=== PATIENT | male | born 1985 | race Caucasian/White ===

== ENCOUNTER 2021-09-25 06:59 | Emergency (ER) | payer SELFPAY ==
[2021-09-25 07:05] VITALS: BP 117/77
== END 2021-09-25 08:36 | disposition left against medical advice (07) ==
LOC: ED 06:59
DX: J02.9 Acute pharyngitis, unspecified (principal); R59.9 Enlarged lymph nodes, unspecified; Z53.21 Procedure and treatment not carried out due to patient leaving prior to being seen by health care provider

== ENCOUNTER 2021-11-09 01:03 | Emergency (ER) | payer SELFPAY ==
--- NOTE | 2021-11-09 22:01 | Ultrasound Report ---
ULTRASOUND SCROTUM INDICATION: Right testicle pain. COMPARISON None available. FINDINGS: RIGHT TESTICLE: 4.4 x 2.7 x 3.8 cm. Normal echogenicity. Normal color flow. No solid or cystic lesion s. RIGHT EPIDIDYMIS: No significant abnormality. LEFT TESTICLE: 4.7 x 2.0 x 3.7 cm. Normal echogenicity. Normal color flow. No solid or cystic lesions . LEFT EPIDIDYMIS: No significant abnormality. HYDROCELE: None seen. VARICOCELE: None seen. ADDITIONAL FINDINGS: None. IMPRESSION: No acute findings to explain the patient's right testicle pain. Signer Name: Easton Mosquera MD Signed: 11/09/2021 9:57 PM Workstation Name: [id number]
[2021-11-09] MEDS ORDERED: IBUPROFEN 800 MG TAB PO ONE (23:38)
[2021-11-09] MEDS ORDERED: levoFLOXacin 500 MG TAB PO ONE (23:38)
--- NOTE | 2021-11-10 00:13 | Emergency Department Report ---
ED General Adult HPI - General Chief complaint: Pain General Stated complaint: TESTICULAR TORSION Time Seen by Provider: 11/09/21 23:37 Source: patient Mode of arrival: Ambulatory Limitations: No Limitations - History of Present Illness Initial comments: Is a 36-year-old male with a history HIV who presents for right testicular pain and swelling x1 week. Patient denies dysuria frequency or urgency there is no open lesions or sores. There is no fevers chills no abdominal pain. Right testicular pain is rated at 5/10 exacerbated by palpation and movement. Pain is relieved by nothing tried patient denies dysuria frequency urgency or penile discharge Severity scale (0 -10): 8 - Related Data Previous Rx's Medication Instructions Recorded Last Taken Type Ibuprofen [Motrin 800 MG tab] 800 mg PO Q8HR PRN #30 tablet 11/10/21 Unknown Rx levoFLOXacin [Levaquin TAB] 500 mg PO QDAY 7 Days #7 tablet 11/10/21 Unknown Rx Allergies Allergy/AdvReac Type Severity Reaction Status Date / Time No Known Allergies Allergy Verified 11/09/21 18:49 ED Review of Systems ROS: Stated complaint: TESTICULAR TORSION Other details as noted in HPI Constitutional: denies: chills, fever Eyes: denies: eye pain, eye discharge, vision change ENT: denies: ear pain, throat pain Respiratory: denies: cough, shortness of breath, wheezing Cardiovascular: denies: chest pain, palpitations Endocrine: no symptoms reported Gastrointestinal: denies: abdominal pain, nausea, vomiting, diarrhea Genitourinary: testicular pain. denies: urgency, dysuria, frequency, hematuria, discharge, testicular mass Musculoskeletal: denies: back pain, joint swelling, arthralgia Skin: denies: rash, lesions Neurological: denies: headache, weakness, paresthesias Psychiatric: denies: anxiety, depression Hematological/Lymphatic: denies: easy bleeding, easy bruising ED Past Medical Hx - Past Medical History Hx Hypertension: No Hx Headaches / Migraines: Yes Hx HIV: Yes - Surgical History Additional Surgical History: chin surgery - Medications Home Medications: Home Medications Medication Instructions Recorded Confirmed Last Taken Type Ibuprofen [Motrin 800 MG tab] 800 mg PO Q8HR PRN #30 tablet 11/10/21 Unknown Rx levoFLOXacin [Levaquin TAB] 500 mg PO QDAY 7 Days #7 tablet 11/10/21 Unknown Rx ED Physical Exam - General Limitations: No Limitations General appearance: alert, in no apparent distress - Head Head exam: Present: atraumatic, normocephalic - Eye Eye exam: Present: normal appearance - ENT ENT exam: Present: mucous membranes moist - Neck Neck exam: Present: normal inspection - Respiratory Respiratory exam: Present: normal lung sounds bilaterally. Absent: respiratory distress, wheezes - Cardiovascular Cardiovascular Exam: Present: regular rate, normal rhythm, normal heart sounds. Absent: systolic murmur, diastolic murmur, rubs, gallop - GI/Abdominal GI/Abdominal exam: Present: soft, normal bowel sounds. Absent: distended, tenderness - Rectal Rectal exam: Present: deferred - exam: Present: testicular tenderness (Right lateral testicular tenderness there is no temporal tenderness to palpation normal scrotal swelling), scrotal swelling, circumcision, other (No open lesions or sores). Absent: urethral discharge, vertical testicular lie - Extremities Exam Extremities exam: Present: normal inspection, full ROM, normal capillary refill. Absent: tenderness - Back Exam Back exam: Present: normal inspection, full ROM. Absent: CVA tenderness (R), CVA tenderness (L) - Neurological Exam Neurological exam: Present: alert, oriented X3, CN II-XII intact, normal gait - Psychiatric Psychiatric exam: Present: normal affect, normal mood - Skin Skin exam: Present: warm, dry, intact, normal color. Absent: rash ED Course Vital Signs 11/09/21 18:43 Temperature 98.4 F Pulse Rate 84 Respiratory 18 Rate Blood Pressure 124/81 [Left] O2 Sat by Pulse 100 Oximetry ED Medical Decision Making - Radiology Data Radiology results: report reviewed, image reviewed ULTRASOUND SCROTUM INDICATION: Right testicle pain. COMPARISON None available. FINDINGS: RIGHT TESTICLE: 4.4 x 2.7 x 3.8 cm. Normal echogenicity. Normal color flow. No solid or cystic lesions. RIGHT EPIDIDYMIS: No significant abnormality. LEFT TESTICLE: 4.7 x 2.0 x 3.7 cm. Normal echogenicity. Normal color flow. No solid or cystic lesions. LEFT EPIDIDYMIS: No significant abnormality. HYDROCELE: None seen. VARICOCELE: None seen. ADDITIONAL FINDINGS: None. IMPRESSION: No acute findings to explain the patient's right testicle pain. Signer Name: Easton Mosquera MD Signed: 11/09/2021 9:57 PM Workstation Name: [id number] Transcribed By: MAYRA Dictated By: Easton Mosquera MD Electronically Authenticated By: Easton Mosquera MD Signed Date/Time: 11/09/212156 DD/ 54 TD/TT: - Medical Decision Making Testicular ultrasound normal no mass no hydrocele no other soft tissue abnormality. Plan treat for orchitis versus epididymitis patient DC'd home with prescriptions. We will follow-up primary care doctor in 2 to 3 days. Patient verbalized agreement and understanding of discharge plan. Patient DC'd home in stable condition at this time. Critical care attestation.: If time is entered above; I have spent that time in minutes in the direct care of this critically ill patient, excluding procedure time. ED Disposition Clinical Impression: Orchitis Disposition: 01 HOME / SELF CARE / HOMELESS Is pt being admited?: No Does the pt Need Aspirin: No Condition: Stable Instructions: Testicular Self-Exam, Orchitis Additional Instructions: Take medication as prescribed, follow-up with your doctor in 2 to 3 days. Return to emergency department should symptoms worsen Prescriptions: levoFLOXacin [Levaquin TAB] 500 mg PO QDAY 7 Days #7 tablet Ibuprofen [Motrin 800 MG tab] 800 mg PO Q8HR PRN #30 tablet PRN Reason: pain Referrals: LELAND NOEL MD [Staff Physician] - 3-5 Days Forms: Work/School Release Form(ED) Time of Disposition: 00:14
[2021-11-10 02:11] VITALS: BP 131/73
== END 2021-11-10 02:11 | disposition home or self-care (01) ==
LOC: ED 17:58
DX: N45.2 Orchitis (principal)
CPT/HCPCS: 93975; 99283